=== PATIENT | female | born 1935 | race Caucasian/White ===

== ENCOUNTER 2018-02-28 08:40 | Day surgery (SDC) | payer MEDICARE, OTHER ==
[2018-02-28] MEDS ORDERED: Lactated Ringers 1,000 ML IV SCH (09:00)
[2018-02-28] MEDS ORDERED: Sodium Chloride 0.9% 10 ML Syringe FLUSH PRN (09:00)
--- NOTE | 2018-03-01 09:21 | OR ---
DATE OF OPERATION: 02/28/2018 SURGEON: Jason Sheldon MD PREOPERATIVE DIAGNOSIS: Cataract, left eye. POSTOPERATIVE DIAGNOSIS: Cataract, left eye. OPERATION PERFORMED: Phacoemulsification of cataract, left eye, with placement of an Ross, model ZCB00, 17.5 diopters, foldable, posterior chamber intraocular lens. SKIVER BOX TOE: None. DESCRIPTION OF PROCEDURE: Peribulbar anesthetic was performed using a mixture of 2% lidocaine with Wydase. The patient was prepped and draped in the usual fashion. A 3 mm fornix based conjunctival flap was performed at the 10 o'clock position. Hemostasis was obtained using diathermy, and a 2.8 mm grooved near clear corneal incision was then made. A stab incision was made into the anterior chamber at the 12 o'clock position and a second stab wound incision was made underlying the grooved near clear corneal incision. Viscoat was instilled into the anterior chamber, and a continuous tear capsulotomy was performed. Hydrodissection was accomplished with balanced salt solution, and the nucleus was removed in a divide and conquer fashion. The remaining cortical material was removed with the irrigation and aspiration unit. Viscoat was instilled into the anterior chamber, and an Ross, model ZCB00, 17.5 diopters, foldable, posterior chamber intraocular lens was placed into the capsular bag, the haptics being positioned at the 2 and 8 o'clock positions. The residual Viscoat was removed from the anterior chamber and the anterior chamber reformed with balanced salt solution. The wound was checked and noted to be watertight. The conjunctiva was secured in its original position with diathermy. Alphagan and Maxitrol Ointment were then placed into the patient's eye. The patient tolerated the procedure well and it was without complication. Elapsed phacoemulsification time was 28.8 seconds. Postoperative instructions as related to activities as well as medications were reviewed with the patient. The patient was instructed to return to see me on the day following surgery for the first postoperative check. The patient was also instructed to contact me prior to that time if the patient was to have any problems. /[id number] DEG/MODL Cc: GUILLE Vaughn, AARON CABRAL
== END 2018-02-28 12:29 | disposition home or self-care (01) ==
LOC: FB.SDS 08:40
PROVIDERS: ATTEND Ophthalmology
PROC: 08RK3JZ Replacement of Left Lens with Synthetic Substitute, Percutaneous Approach (ICD-10-PCS; principal; 2018-02-28)
DX: H26.9 Unspecified cataract (principal); Z79.82 Long term (current) use of aspirin; Z79.899 Other long term (current) drug therapy; E78.5 Hyperlipidemia, unspecified; J30.2 Other seasonal allergic rhinitis
CPT/HCPCS: 00142; 66984; C1780; J7050